=== PATIENT | male | born 1935 | race Caucasian/White ===

== ENCOUNTER 2017-01-17 19:10 | Emergency (ER) | payer MEDICARE, BC ==
[~2017-01-17] VITALS: Ht 165.1 cm; Wt 81.6 kg
--- NOTE | ~2017-01-17 | CR72 ---
[facility] A Service [facility] RADIOLOGY TEXT RESULTS PATIENT: LONA RAMOS LOCATION: SED : 33 UNIT #: [id number] AGE: [address]: Raymundo Ray MD SEX: M ORDER DR: [id number] [place] [id number] E MR#: [id number] Acc #: [id number] NAME: LONA RAMOS. : 1935 SEX: M STUDY DATE/TIME: 01/17/2017 21:08 UNIT: SED ROOM: STUDY DESCRIPTION: CR Chest Single View Portable Attending Physician: Raymundo Ray M.D. Ordering Physician: Raymundo Ray M.D. Primary Care Physician: Micky Price M.D. MEDICAL IMAGING REPORT This report is preliminary unless electronic signature is present. EXAM AP radiograph chest; 01/17/2017. HISTORY Chest pain status post fall. Fall. Both arms, nose, mouth abrasions. Bruise over right eye. SDE, prior upper chest pain. Patient thinks due to fall x30 minutes. REPORT AP radiograph of the chest is presented. COMPARISON 12/15/2011. FINDINGS No clearly acute bony abnormality. Mild cardiac enlargement more pronounced than on prior study. The lungs are well inflated. No acute pulmonary disease, pleural effusion or pneumothorax. No suspicious nodule. Small calcified granulomata right upper and lower lung zones. Dictated by... James Morrison M.D. THIS IS AN ELECTRONICALLY VERIFIED REPORT James Morrison M.D. at 01/18/2017 1:22 PM LORRI/estela TD: 01/17/2017 22:35 JOB #: [id number] MEDICAL IMAGING REPORT [facility] A Service [facility] RADIOLOGY TEXT RESULTS PATIENT: LONA RAMOS LOCATION: SED : 33 UNIT #: [id number] AGE: [address]: Raymundo Ray MD SEX: M ORDER DR: Page 1 of 1
--- NOTE | ~2017-01-17 | EKG ---
PATIENT: LONA RAMOS UNIT #: [id number] Ventricular Rate: 63 BPM Atrial Rate: 63 BPM P-R Interval: 154 ms QRS Duration: 84 ms Q-T Interval: 430 ms QTC Calculation(Bezet): 440 ms P [place]: 94 degrees Calculated R [place]: 49 degrees Calculated T [place]: 55 degrees Diagnosis Line: Normal sinus rhythm Diagnosis Line: Normal ECG Diagnosis Line: When compared with ECG of 26-NOV-2013 12:54, Diagnosis Line: Sinus rhythm has replaced Ectopic atrial rhythm Diagnosis Line: Nonspecific T wave abnormality no longer evident Diagnosis Line: in Inferior leads Diagnosis Line: Confirmed by FLOYD LANIER MD ([id number]) on Diagnosis Line: 01/19/2017 7:15:25 AM INTERPRETING MD: YANNICK LUCAS
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
[~2017-01-17 19:10] MED LIST: AMLODIPINE BESYL5 MG PO; ASPIRIN PO; ASPIRIN81 M1 PO; CIPRO; CORDARONE200 M1 PO; COUMADIN PO; COUMADIN2.5 MG PO; COUMADIN5 MG PO; HYDROCHLOROTHIA25 MG PO; HYTRIN PO; HYTRIN5 M1 PO; HYTRIN5 MG PO; KCL PO; LASIX PO; LIPITOR PO; LORTAB 5/500 TA1 TA1 PO; LOTREL 2.5/10 M1 CAP PO; PERCOCET5/325 PO; SOTALOL AF80 M1 PO; TOPROL XL PO; ZOFRAN ODT4 MG PO
[2017-01-17 21:08] LABS: EOSINOPHIL# 0.2 X10e3 (0-0.7); EOSINOPHIL% 2.6 % (0.0-7.0); HEMATOCRIT 42.9 % (38.0-50.0); HEMOGLOBIN 14.8 gm/dL (13.0-16.0); LYMPHOCYTE# 1.7 X10e3 (1.0-3.5); MEAN CELL VOLUME 89.1 FL (83-96); MEAN CORPUSCULAR HEMOGLOBIN 30.7 PG (28-34); MEAN CORPUSCULAR HGB CONC 34.4 g/dL (30-36); MEAN PLATELET VOLUME 8.4 FL (6.5-11.5); MONOCYTE# 0.9 X10e3 (0-1.0); MONOCYTE% 10.8 % (3.0-12.0); NEUTROPHIL# 5.6 X10e3 (1.5-7.1); NEUTROPHIL% 66.6 % (40-75); PLATELET COUNT 134 X10e3 (140-420); RED BLOOD COUNT 4.81 X10e (3.90-5.60); RED CELL DISTRIBUTION WIDTH 14.8 % (11.0-15.5); WHITE BLOOD COUNT 8.4 X10e3 (4.0-10.5)
[2017-01-17 21:11] LABS: DIFF IND NO
[2017-01-17 21:25] LABS: BUN/CREATININE RATIO 18.66; CALCIUM SERUM 8.9 mg/dL (8.4-10.2); CREATININE SERUM 1.5 mg/dL (0.6-1.4); GLOM FILT RATE Estimated 42.5 mL/min (>60); POTASSIUM 3.4 mmol/L (3.5-5.1)
[2017-01-17 21:26] LABS: POC - CKMB 2.9 ng/mL (0.0-7.9); POC - TROPONIN <0.05 ng/mL (<=0.05)
[2017-01-17 21:29] LABS: PARTIAL THROMBOPLASTIN TIME 31.6 SECONDS (25.6-38.1); PROTHROMBIN TIME (PATIENT) 23.2 SECONDS (9.5-12.4)
== END 2017-01-17 22:20 | disposition home or self-care (01) ==
LOC: SED 19:10
PROVIDERS: Emergency Medicine
DX: S09.90XA Unspecified injury of head, initial encounter (principal); S51.812A Laceration without foreign body of left forearm, initial encounter; S51.811A Laceration without foreign body of right forearm, initial encounter; S00.31XA Abrasion of nose, initial encounter; Z79.82 Long term (current) use of aspirin; Z79.01 Long term (current) use of anticoagulants; Z79.899 Other long term (current) drug therapy; Z88.2 Allergy status to sulfonamides; W01.198A Fall on same level from slipping, tripping and stumbling with subsequent striking against other object, initial encounter
CPT/HCPCS: 12001; 12004; 36415; 70450; 71010; 80048; 82553; 84484; 85025; 85610; 85730; 90471; 90715; 93005; 99284